=== PATIENT | male | born 1930 | race Caucasian/White ===

== ENCOUNTER → 2016-09-04 | Outpatient (CLI) | payer MEDICARE, MEDICAID ==
[~2016-09-04] MED LIST: ALEN70TA2 OR; ASPI81CH43 PO; CALC500T62 OR; EMBREL PO; ESOM40CA39 OR; FOLI1TAB6 OR; METH2.5T3 OR; METO25TA3 OR; PLAQUENIL; PRED5PAK8 OR; TAM04C OR
[2016-09-04 14:28] LABS: Basophils # (auto) 0.1 uL; Basophils % (auto) 0.8 % (0.0-2.0); DEFINITIVE VIEW TRANSMISSION; Eosinophils # (auto) 0.8 uL; Eosinophils % (auto) 10.3 % (0.0-7.0); Hematocrit 41.3 % (41.0-53.0); Hemoglobin 13.3 g/dL (13.5-17.5); Lymphocytes # (auto) 1.1 uL; Lymphocytes % (auto) 13.8 % (10.0-50.0); Mean Corpuscular Hemoglobin 29.4 pg (28.0-32.0); Mean Corpuscular Hgb Conc. 32.2 g/dL (32.0-36.0); Mean Corpuscular Volume 91.2 fL (80.0-100.0); Mean Platelet Volume 7.7 fL (7.4-10.4); Monocytes # (auto) 0.6 uL; Monocytes % (auto) 7.8 % (0.0-12.0); Neutrophils # (auto) 5.2 uL; Neutrophils % (auto) 67.3 % (37.0-80.0); Platelet Count (auto) 272 10^3/uL (140-450); Red Cell Distribution Width 14.4 % (11.6-16.0); White Blood Cell 7.8 10^3/uL (4.4-10.8)
[2016-09-04 15:14] LABS: Albumin 3.4 g/dL (3.4-5.0); BUN/Creatinine Ratio 42.4; Calcium 8.6 mg/dL (8.5-10.1)
[2016-09-04 15:18] LABS: Bilirubin, Total 0.4 mg/dL (0.2-1.0); Total Protein 7.1 g/dL (6.4-8.2)
== END | disposition home or self-care (01) ==
LOC: LAB 14:09
DX: M06.9 Rheumatoid arthritis, unspecified (principal); M25.50 Pain in unspecified joint; D64.9 Anemia, unspecified; I10 Essential (primary) hypertension
CPT/HCPCS: 36415; 80053; 85025; 85049; 85652; 86141